=== PATIENT | female | born 1970 | race Caucasian/White ===

== ENCOUNTER 2024-11-01 07:48 | Emergency (ER) | payer OTHER, SELFPAY ==
[2024-11-01 07:51] VITALS: BP 184/113
--- NOTE | 2024-11-01 09:04 | ED.GENMED ---
History of Present Illness
General
Chief Complaint: Blood Pressure Problem
Source: patient
Exam Limitations: none
Time Seen by Provider: 11/01/24 08:34
Nursing documentation reviewed up to this point in time: agreed with
History of Present Illness
History of Present Illness:
Patient with history of seasonal allergies, presents to ED secondary to persistently elevated blood pressure noted as well as at urgent care center yesterday afternoon. Patient currently does not have any diagnosed medical condition, for which she
is being treated for. In fact, patient has not seen primary care physician for some time. Recently, her was diagnosed with hypertension and was advised to obtain blood pressure cuff at home. Without having any symptoms, patient opted to
check her blood pressure recently, which was noted to be high. 2 nights ago, patient reports feeling 'uneasy', and had trouble sleeping. As such, yesterday afternoon, [facility], including blood
pressure. Her blood pressure reading at urgent care center was noted to be mildly elevated. She was advised to go home and keep log of her blood pressure, twice daily. She was able to sleep last night without any problems. She got up this
morning was able to walk her dog without any difficulties. However, upon returning, when she checked her blood pressure, on 2 separate occasions, her blood pressure was noted to be greater than 170 systolic. Patient denies associated headache,
blurred vision, dizziness, chest pain, shortness of breath, or weakness. Patient denies recent illness. Denies family history of heart disease. Patient drinks occasionally and does not smoke. Patient reports approximately 10 pound weight gain
over the past 1 year. In addition, patient states that she is under heavy stress both at work and at home, which she feels may be contributing to her high blood pressure.
Past History
Past History
ED Past Medical History: None
ED Past Surgical History: None
Social History
Tobacco: Non-smoker
Alcohol: None
Drug: None
Personal:
Living: with family
Review of Systems
Review of Systems
Allergies reviewed?: Yes
All Other Systems: ROS reviewed and negative except as documented in HPI and ROS
Constitutional: Reports no symptoms; Denies fever or chills
Respiratory: Denies trouble breathing
Cardiac: Reports no symptoms; Denies chest pain, palpitations or syncope
ABD/GI: Reports no symptoms
: Reports no symptoms; Denies bleeding
Musculoskeletal: Reports no symptoms
Skin: Reports no symptoms
Neurological: Reports no symptoms; Denies dizzy, headache or weakness
Phy Exam
Physical Exam
Physical Exam:
Physical Exam
General: no apparent distress, not acutely ill. afebrile. overweight
Head: nc/at. eomi
Neck: supple. normal range of motion. no jvd
Heart: s1/s2 regular rate and rhythm, no murmur.
Lungs: no acute respiratory distress. clear bilaterally
Abdomen: normal bowel sounds. not tender.
Neuro: alert and oriented x 3. no focal neurological deficits. normal speech. normal gait
Skin: no rash
Psychiatric: well kept. interactive and cooperative
Extremities: no edema. no calf tenderness.
Course
Orders/Labs/Results
Orders:
Orders
11/01/24 09:03
Electrocardiogram (*1) Urgent
Reason for Study: Hypertension, Benign
EKG- Treatment ONCE
11/01/24 09:22
Complete Blood Count/With Diff Urgent
Comprehensive Metabolic Panel Urgent
Magnesium Urgent
TSH Urgent
Troponin I Urgent
Urinalysis Reflex To Culture Urgent
Date Specimen was Collected: 11/01/24
Time Specimen was Collected: 09:12
Abnormal Lab Results
11/01/24
09:22
Absolute Lymphs (auto) 1.0 L 10^3/uL
(1.2-3.4)
Chloride 109 H mmol/L
(98-107)
Glucose 106 H mg/dl
(70-99)
05/08/25 09:22
11/01/24 09:22
Vital Signs
Initial and Last Documented VS:
Initial Vital Signs
Temp Pulse Resp BP Pulse Ox
98.1 F 85 18 184/113 98
11/01/24 07:51 11/01/24 07:51 11/01/24 07:51 11/01/24 07:51 11/01/24 07:51
Last Documented Vital Signs
Temp Pulse Resp BP Pulse Ox
98.1 F 59 12 127/88 94
11/01/24 07:51 11/01/24 10:00 11/01/24 10:00 11/01/24 10:00 11/01/24 10:00
MDM/Problems Addressed
MDM/Problems Addressed:
Patient with an unremarkable workup in ED, including blood work and EKG. Patient's initial hypotension resolved spontaneously during observation in ED, without treatment. Diet/exercise discussed with patient, along with PMD follow-up as an
outpatient. Cautioned patient regarding frequent blood pressure checks at home, without any symptoms. Patient expressed understanding, at time of discharge.
*EKG
Interpreted by ED Provider?: Yes
EKG Intrepretation Date: 11/01/24
Heart Rate: 65
Rate: normal
Rhythm: sinus and PVC's
[place]: normal axis
*Critical Care Note
Total Time (30-74mins, 75-104mins- exclusive of procedures): Not Applicable
ED Attending Note
-
Portions of this chart may have been created with voice recognition software.� Occasional wrong word or��sound alike� substitutions may have occurred due to the inherent limitations of voice recognition software.
Discharge Plan
Departure
Patient Disposition: Home (Routine Discharge)
Date of Disposition: 11/01/24
Time of Disposition: 10:07
Patient with high blood pressure during this ER visit?: Yes
Condition: Good
Discharge Problem:
Hypertension
Instructions: High Blood Pressure (DC), DASH diet
Prescriptions:
No Action
hydrocodone-acetaminophen [Vicodin] 1 EACH tablet
1 ea PO Q4HPRN PRN (Reason: severe pain) Qty: 20 0RF
Referrals:
NONE,* [Family Provider] -
Activity Restrictions/Additional Instructions:
As discussed, please follow-up with your primary care physician for reevaluation.
Interventions
Interventions:
*Risk Screen - Suicide Last Done: 11/01/24 07:51
*General Assessment Last Done: 11/01/24 07:51
*Neglect/Abuse Screening Last Done: 11/01/24 07:51
*ED- Fall Risk Assessment Last Done: 11/01/24 09:50
*ED COVID-19 Vaccine History Last Done: 11/01/24 09:50
*Nursing Disposition Last Done: 11/01/24 10:45
ED- Cardiac Assessment Last Done: 11/01/24 09:50
ED- Neurological Assessment Last Done: 11/01/24 09:50
ED- Pulmonary Assessment Last Done: 11/01/24 09:50
Discharge Date and Time
Discharge Date/Time: 11/01/24 10:46
Print Language: [id number]
[2024-11-01 09:25] VITALS: BP 145/95; BMI 38.9
[2024-11-01 09:30] VITALS: BP 135/89
[2024-11-01 09:39] LABS: % Basophils 0.6 % (0-2); % Eosinophils 1.8 % (0-6); % Immature Granulocytes 0.2 % (0-0.5); % Lymphocytes 21.1 % (20.5-51.1); % Monocytes 7.7 % (1.7-9.3); % Neutrophils 68.6 % (42.2-75.2); Absolute Eosinophils 0.1 10^3/uL (0-0.7); Absolute Monocytes 0.4 10^3/uL (0.1-0.6); Absolute Neutrophils 3.4 10^3/uL (1.4-6.5); Hematocrit 40.8 % (37.0-47.0); Hemoglobin 14.2 g/dL (12.0-16.0); Mean Corp Hgb Conc. 34.8 g/dL (33.0-37.0); Mean Corpuscular Hgb 29.5 pg (27.0-31.0); Mean Corpuscular Volume 84.6 fL (81.0-99.0); Mean Platelet Volume 8.3 fL (7.4-10.4); Nucleated Red Blood Cells % 0 %; Platelet Count 395 10^3/uL (130-400); Red Blood Cell Count 4.82 10^6/uL (4.20-5.40); Red Cell Dist. Width 12.3 % (11.5-14.5); White Blood Cell Count 4.9 10^3/uL (4.8-10.8)
[2024-11-01 09:51] LABS: Urine Albumin Negative (Neg - Trace); Urine Bilirubin Negative (Negative); Urine Character Clear (Clear); Urine Color Yellow; Urine Glucose Negative (Negative); Urine Ketone Negative (Negative); Urine Leukocyte Negative (Negative); Urine Nitrite Negative (Negative); Urine Occult Blood Negative (Negative); Urine Urobilinogen Negative (Neg - 1+)
[2024-11-01 09:54] LABS: ALT (SGPT) 20 U/L (0-35); AST (SGOT) 17 U/L (14-36); Albumin 4.5 g/dl (3.5-5.0); Alkaline Phosphatase 59 U/L (38-126); Blood Urea Nitrogen 12 mg/dl (7-17); Carbon Dioxide 23 mmol/L (22-30); Chloride 109 mmol/L (98-107); Estimated Creatinine Clearance 102 ml/min; Glucose 106 mg/dl (70-99); Potassium 4.4 mmol/L (3.5-5.1); Sodium 141 mmol/L (135-145); Total Bilirubin 0.7 mg/dl (0.2-1.3); Total Protein 7.8 g/dl (6.3-8.2); eGFR > 60.00
[2024-11-01 10:00] VITALS: BP 127/88
[2024-11-01 10:06] LABS: Troponin I < 0.012 ng/ml
[2024-11-01 10:33] LABS: TSH 0.91 uIU/ml (0.47-4.68)
== END 2024-11-01 10:46 | disposition home or self-care (01) ==
LOC: EMR 07:48
PROVIDERS: EMERGENCY PHYSICIAN Emergency Medicine
DX: I10 Essential (primary) hypertension (principal); I49.3 Ventricular premature depolarization
CPT/HCPCS: 99284; 80053; 81003; 83735; 84443; 84484; 85025; 93005